=== PATIENT | female | born 1975 | race Caucasian/White ===

== ENCOUNTER 2022-12-08 14:41 | Emergency (ER) | payer OTHER, SELFPAY ==
[2022-12-08 14:48] VITALS: BP 146/99; PULSE 91; RESP 14; TEMP 36.7; O2SAT 99
--- NOTE | 2022-12-08 14:48 | ED.GENADULT ---
HPI - General Adult General Stated complaint: Blood Pressure Problem/Chest Pain Time Seen by Provider: 12/08/22 14:56 Mode of arrival: ambulatory Limitations: no limitations History of Present Illness HPI narrative: 47-year-old female presents with concern for chest pain, increased blood pressure, chest heaviness, ?just not feeling right?. She reports she has been having intermittent chest pain for couple of days, she started ?just not feeling right? today. She reports she has been going through a lot of stress. She denies shortness of breath, exacerbating or relieving factors of her chest pain. Reports she has had some nausea today. Otherwise denies sick symptoms. MD complaint: Chest pain Related Data Home Medications Medication Instructions Recorded Confirmed No Home Medications 12/08/22 12/08/22 Allergies Allergy/AdvReac Type Severity Reaction Status Date / Time egg Allergy Mild ABDOMINAL Verified 12/01/15 11:18 PAIN Review of Systems Review of Systems: CONSTITUTIONAL: Denies malaise, chills, sweats, or fever. EYES: Denies visual changes, redness, or discharge. ENT: Denies rhinorrhea, congestion, sinus pain, otalgia or sore throat. CARDIOVASCULAR: Reports chest pain and heaviness. Denies palpitations or edema. RESPIRATORY: Denies cough or dyspnea. GASTROINTESTINAL: Denies abdominal pain, vomiting, diarrhea. Reports nausea SKIN: Denies rash or itching. MUSCULOSKELETAL: Denies back pain, joint pain, or myalgia. NEUROLOGIC: Reports headache. PSYCHIATRIC: Reports anxiety All systems reviewed & are unremarkable except as noted in HPI and below PMFSH Comments At time of signature, agree with nursing past medical, surgical, social and family history. There is no relevant family history pertinent to the presenting complaint Exam Narrative: GENERAL: Well-appearing, well-nourished, and in no acute distress. HEAD: Normocephalic, atraumatic. EYES: PERRLA, sclera clear, and EOMI. ENT: Nares clear, turbinates pink, no rhinorrhea or epistaxis. Mucous membranes moist. NECK: Supple. No lymphadenopathy. Carotids were easily palpable bilaterally. CHEST: No respiratory distress. Clear to auscultation. No bony deformities, no asymmetry. Speaks in full sentences. HEART: Regular rate and rhythm. No murmur heard. Normal peripheral pulses. SKIN: Warm, dry, no visible rash. NEURO: Alert and oriented x3. PSYCH: Normal mood and affect Course Course Emergency Course: Patient is aware of, understands and agrees to be seen in the emergency room. Patient agrees to proceed directly to the emergency department. Portions of this record may have been created with voice recognition software Level of Care: Express Care Visit Vital Signs Vital signs: Reviewed. Transfer Transfered to: [place]) Transportation: Other (Private vehicle driven by sister) Transfer rationale: Chest pain, heaviness Accepting physician: Maxine Robert Medical Decision Making MDM Narrative Medical decision making narrative: Exam findings and imaging show no acute concerns or changes; patient is non-toxic appearing and is in no distress. Patient is appropriate for outpatient treatment and follow-up. ECG Data EKG #1: ECG completion date: 12/08/22 ECG completion time: 15:04 Prior ECG tracings: not available for review Interpretation: Right and left atrial enlargement, rate 91, NC interval 136, QRS duration 88 EKG Interpretation: sinus rhythm and ST depression Critical Care Time Critical Care Time Critical Care Time: No Discharge Plan Discharge Clinical Impression: Chest pain Patient Disposition: Acute Care Hospital Condition: Stable Follow-up/Referrals: PHYSICIAN NOT ON STAFF,NONSTAFF [Primary Care Provider] - Time of Disposition: 15:14
--- NOTE | 2022-12-08 15:04 | ECG_ITS ---
Measurements Intervals [place] Rate: 91 P: 70 MA: 136 QRS: 45 QRSD: 88 T: 50 QT: 339 QTc: 418 Interpretive Statements SINUS RHYTHM POSSIBLE RIGHT ATRIAL ENLARGEMENT POSSIBLE LEFT ATRIAL ENLARGEMENT BASELINE ARTIFACT- I BORDERLINE ECG NO PREVIOUS ECG AVAILABLE FOR COMPARISON Electronically Signed On 12-08-2022 15:15:56 CDT by Natalio Lopez D.O.
== END 2022-12-08 15:15 | disposition short-term general hospital (02) ==
PROVIDERS: Emergency Provider Nurse Practitioner
DX: R07.9 Chest pain, unspecified (principal)
CPT/HCPCS: 93005; 99203; G0463

== ENCOUNTER 2024-10-19 11:46 | Emergency (ER) | payer OTHER, SELFPAY ==
--- NOTE | ~2024-10-19 | XR_ITS ---
[[id number] ] INDICATION: Left rib pain TECHNIQUE: Frontal projection of the upper left ribs, frontal projection of the lower left ribs, obli que projection of all the left ribs, frontal inspiratory chest x-ray for interpretation. FINDINGS: There are no displaced rib fractures identified. There are no soft tissue abnormality see n. The lungs are clear. IMPRESSION: 1:No acute displaced rib fractures. Reviewed, dictated and finalized at location A.
--- OUTSIDE RECORDS SUMMARY | 2024-10-19 11:48 | XMS_ITS | Clinical Summary ---
Author Organization [facility] Address [address], [place] [address] Phone Care Team Providers Care Motion Study Analyst Name Role Phone Antwan Clarke APRN, STRAND AND BINDER CONTROLLER Primary Care Provider + Allergies Active Allergy Reactions Criticality Noted Date Comments Egg-Derived Products Unknown 06/11/2016 Morphine Other (see Comments) 02/28/2019 Passes out but still has pain Medications ibuprofen (MOTRIN) 600 MG Tablet Take 600 mg by mouth every 8 hours as needed. Active Cholecalciferol (VITAMIN D-3 PO) Take by mouth daily. Active Loperamide HCl (IMODIUM A-D PO) Take by mouth as needed. Active famotidine (PEPCID) 20 MG Tablet Take 1 Tab by mouth 2 times daily. 90 Tab 3 02/01/2019 Active hydrOXYzine (ATARAX) 25 MG Tablet Take 1 Tablet by mouth every 6 hours as needed for Anxiety. 90 Tablet 12/08/2022 Active Active Problems Problem Noted Date Diagnosed Date Tremor 06/11/2016 Fibromyalgia 06/11/2016 Chronic daily headache 06/11/2016 Anxiety 06/11/2016 Family History Medical History Relation Name Comments Colon Cancer Father Skin Cancer Maternal Aunt 1 Cancer Maternal Aunt 2 Cancer Mother esophagus Lung Cancer Mother Ovarian Cancer Mother Breast Cancer Paternal Grandmother Relation Name Status Comments Father Maternal Aunt 1 Maternal Aunt 2 blood cancer Mother Esophagus cance r Paternal Grandmother Social History Tobacco Use Types Packs/Day Years Used Date Smoking Tobacco: Every Day Cigarettes 0.5 23 Smokeless Tobacco: Never Tobacco Cessation:Ready to Q uit: No; Counseling Given: Yes Alcohol Use Standard Drinks/Week Comments Yes 5 (1 standard drink = 0.6 oz pur e alcohol) AUDIT-C Answer Date Recorded Frequency of Alcohol Consumption 2-4 times a tue02/01/2019 Average Number of Drinks 3 or 4 019 Frequency of Binge Drinking Not on file 01/13 PHQ-2 Answer Date Recorded PHQ-2 Score 0 02/28/2019 Sexually Active Control Partners Comments Yes Male Comments No Sex and Gender Information Value Date Recorded Sex Assigned at Not on file Legal Sex Female 4:44 PM ROOFING LAYER Gender Identity Not on file Sexual Orientation Not on file 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 Not on file Not on file Not on file Last Filed Vital Signs Vital Sign Reading Time Taken Comments Blood Pressure 142/93 12/08/2022 5:37 PM CDT Pulse 72 12/08/2022 5:37 PM CDT Temperature 36.3 C (97.4 F) 12/08/2022 5:37 PM CDT Respiratory Rate 17 12/08/2022 5:37 PM CDT Oxygen Saturation 99% 12/08/2022 5:37 PM CDT Inhaled Oxygen Concentration - - Weight 62.1 kg (137 lb) 12/08/2022 3:36 PM CDT Height 160 cm (5' 3) 12/08/2022 3:36 PM CDT Body Mass Index 24.27 12/08/2022 3:36 PM CDT Plan of Treatment Health Maintenance Due Date Last Done Comments Hepatitis C Virus (HCV) Screening 1977 TdaP Immunization 1977 Hepatitis B Immunization (1 of 3 - 19+ 3-dose series) 1996 Pneumococcal Immunization Combined (1 of 2 - PCV) 1996 Pap Smear 1998 Cervical Cancer Screening (CCS) 2007 HPV/Cotest 2007 Cologuard 2022 Immunochemical Fecal Occult Blood 2022 Mammogram 06/22/2023 06/21/2022 SARS-COV-2 Immunization ( season) 2023 10/02/2020 Influenza Immunization (#1) 2024 Colonoscopy 02/01/2026 02/01/2023, 02/28/2019 Colorectal Cancer Screening 02/01/2026 Respiratory Syncytial Virus (RSV) Immunization (Adult) (1 - 1-dose 75+ series) 2052 Discussion re Starting/Frequency of Mammograms Completed 06/21/2022 Human Papillomavirus (HPV) Immunization Aged Out No longer eligible b ased on patient's age to complete this topic Meningococcal Immunization (ACWY) Aged Out No longer eligible b ased on patient's age to complete this topic Rotavirus Immunization Aged Out No lo nger eligible based on patient's age to complete this topic [place] [address] [facility] Care Teams Motion Study Analyst Relationship Specialty Start Date End Date Antwan Clarke, [place], [place] [address] [place] [address] PCP - General Internal Medicine 04/20/16
--- OUTSIDE RECORDS SUMMARY | 2024-10-19 11:48 | XMS_ITS | Clinical Summary ---
Author Organization [facility] [address] [facility] Address [address] [place] [address] Care Team Providers Care Paste Mixer Name Role Phone Cortez Bowden MD Primary Care Provider [phone] Allergies Active Allergy Reactions Criticality Noted Date Comments Egg Morphine Medications loratadine-pseu doephedrine (CLARITIN-D 24-hour) 10-240 mg per 24 hr tablet Take 1 tablet by mouth daily as needed for allergies Active iron 18 mg tablet Take 1 tablet by mouth every morning Active multivitamin capsule Take 1 capsule by mouth daily Active aspirin 81 mg enteric coated tablet Take 1 tablet (81 mg total) by mouth daily Active omeprazole (PriLOSEC) 40 mg capsule Take 1 capsule (40 mg total) by mouth daily 30 capsule 2 4 Active traZODone (DESYREL) 50 mg tablet Take 1 tablet (50 mg total) by mouth nightly Active nicotine (NICODERM CQ) [address] 1 patch on the skin daily 30 patch 5 Active LORazepam (ATIVAN) 0.5 mg tabletIndicatio ns:Alcohol Withdrawal Syndrome Take 2 tablets (1 mg total) by mouth every 8 (eight) hours as needed (withdrawal symptoms) for 1 day, THEN 2 tablets (1 mg total) 2 (two) times a day as needed (withdrawal symptoms) for 1 day, THEN 2 tablets (1 mg total) nightly as needed (withdrawal symptoms) for up to 1 day. 6 tablet 5 Active Active Problems Problem Noted Date Diagnosed Date Alcohol withdrawal syndrome without complication 04/20/2024 Arthritis 04/20/2024 Asthma 04/20/2024 Hx of colonic polyps 01/21/2023 Blood in stool 01/21/2023 Gastroesophageal reflux disease 01/21/2023 Irritable bowel syndrome with diarrhea 9 Mixed anxiety and depressive disorder 12/05/2018 Anxiety 06/11/2016 Fibromyalgia 06/11/2016 Tremor 06/11/2016 Surgical History Surgery Date Site/Laterality Comments COLONOSCOPY 03/14/2018 - 03/13/2019 POLYPECTOMY UPPER GASTROINTESTINAL ENDOSCOPY Medical History Medical History Date Comments Colon polyp Fibromyalgia Anxiety Migraine Pre-diabetes Menopause Family History Medical History Relation Name Comments Colon cancer Father Breast cancer Father's Sister Ovarian cancer Mother Breast cancer Paternal Grandmother Thyroid cancer Neg Hx Relation Name Status Comments Father Father's Sister Mother Paternal Grandmother Social History Tobacco Use Types Packs/Day Years Used Date Smoking Tobacco: Every Day Cigarettes Tobacco Cessation:Ready to Q uit: Not Asked; Counseling Given: Not Answered AUDIT-C Answer Date Recorded Q1: How often do you have a drink containing alc ohol? 2-3 times a week 09/02/2023 Q2: How many drinks containi ng alcohol do you have on a typical day when you are drinking? 3 or 4 09/02/2023 Q3: How often do you have si x or more drinks on one occasion? Never 09/02/2023 Personal Safety Answer Date Recorded Have you ever been in or are you currently in a harmful physical or emotional relationship or is someone making you feel afraid or unsafe? Denies 04/19/2024 Comments Unknown Sex and Gender Information Value Date Recorded Sex Assigned at Not on file Legal Sex Female 9:10 AM RECREATION CLERK Gender Identity Not on file Sexual Orientation Not on file Obstetrics History Para Term AB IAB SAB Ectopic Multiple Livin g Live Births 3 2 2 Date Outcome GA Total Labor Labor/2nd/3rd Weight Sex Type Anes PTL Monica A1 A5 Name Clin Term Term Last Filed Vital Signs Vital Sign Reading Time Taken Comments Blood Pressure 114/78 04/22/2024 7:34 AM RECREATION CLERK Pulse 84 04/22/2024 7:34 AM RECREATION CLERK Temperature 36.5 C (97.7 F) 04/22/2024 7:34 AM RECREATION CLERK Respiratory Rate 18 04/22/2024 7:34 AM RECREATION CLERK Oxygen Saturation 96% 04/22/2024 7:34 AM RECREATION CLERK Inhaled Oxygen Concentration - - Weight 61.2 kg (134 lb 14.7 oz) 04/21/2024 7:30 PM RECREATION CLERK Height 160 cm (5' 2.99) 04/21/2024 7:30 PM RECREATION CLERK Body Mass Index 23.91 04/21/2024 7:30 PM RECREATION CLERK Plan of Treatment Health Maintenance Due Date Last Done Comments Cervical Cancer Screening 1977 Depression Screening 1977 DTaP/Tdap/Td Vaccine (1 - Tdap) 1988 Hepatitis B Screening 1995 Regular Well Visit/Exam 18-64 1995 Pneumococcal vaccine <65 (1 of 2 - PCV) 1996 Breast Cancer Screening-Mammogram 06/22/2023 023, 11/27/2018 Covid-19 Vaccine (2 - season) 2023 Influenza Vaccine (#1) 2024 Colon Cancer Screening-Colonoscopy 02/01/20332022, 01/18/2011 Hepatitis C Screening Completed 04/20/2024 Procedures Procedure Name Priority Date/Time Associated Diagnosis Comments HEPATITIS C ANTIBODY Routine 04/20/2024 3:46 PM RECREATION CLERK COLONOSCOPY 02/01/2023 12:41 PM RECREATION CLERK SCREENING MAMMOGRAM BILATERAL W [facility] Schedule Routine, Read Routine (OP Routine) 06/21/2022 12:07 PM CDT Encounter for screening mammogram for malignant neoplasm of breast from Last 3 Months or Most Recently Relevant to Health Maintenance Results * Hepatitis C antibody Blood (04/20/2024 3:46 PM RECREATION CLERK) Hep C Ab Nonreactive Nonreactive Comment: Antibodies to HCV not detected. Does NOT exclude the possibility of recent exposure to HCV. Current interpretive data was last revised on 21 Interpretive Data Nonreactive: Antibodies to HCV not detected. Does NOT exclude the possibility of recent exposure to HCV. Equivocal: Equivocal for HCV antibodies. Supplemental molecular testing will be automatically performed to determine infection status in accordance with current CDC screening recommendations. Reactive: Positive for HCV antibodies. This may represent current or past HCV infection. Supplemental molecular testing will be automatically performed to determine current infection status in accordance with current CDC screening recommendations. Interpretive data was last revised on 2019. Blood 04/20/2024 3:46 PM RECREATION CLERK 04/20/2024 3:50 PM RECREATION CLERK Janet Huizar NP LAB MICROBIOLOGY - GENERAL ORDERABLES Final Result Performing Organization Address City/State/[facility] [place] Phone Number PAO [address] [facility] Department [place] [address] * COLONOSCOPY (02/01/2023 12:41 PM RECREATION CLERK) Anatomical Region Laterality Modality Other Narrative Procedure Note Cara Cruz MD - 02/01/2023 12:41 PM CST [facility] Patient Name: Monisha Guerra Procedure Date: 02/01/2023 12:41PM Date of : 1975 Admit Type: Outpatient Age: 47 Gender: Female Attending MD: Cara Cruz M.D. Room: [facility] 1 Note Status: Finalized Patient Profile: This is a 47 year old female. History of polyps.Noted episodes of bright red bleeding per rectum Procedure: Colonoscopy Indications: High risk colon cancer surveillance: Personalhistory of colonic polyps, Last colonoscopy: 2018 Referring MD: Cortez Bowden M.D. Providers: Cara Cruz M.D. Impression: - Two 2 to 3 mm polyps in the ascending colon and cecum, removed with a cold biopsy forceps. Resected and retrieved. - Mild diverticulosis in the sigmoid colon and inthe descending colon. - One 4 mm polyp in the distal sigmoid colon,removed with a cold biopsy forceps. Resected andretrieved. - Internal and external hemorrhoids. Recommendation: - Await pathology results. - Repeat colonoscopy in 5 years for surveillance. - Continue present medications. - If bleeding per rectum episodes are persistentthen consider banding of internal hemorrhoids Medicines: Monitored Anesthesia Care Complications: No immediate complications. Estimated Blood Loss: Estimated blood loss: none. Procedure: Pre-Anesthesia Assessment: - Prior to the procedure, a History and Physicalwas performed, and patient medications and allergieswere reviewed. The patient's tolerance of previous anesthesia was also reviewed. The risks andbenefits of the procedure and the sedation options and risks were discussed with the patient. All questions were answered, and informed consent was obtained. Prior Anticoagulants: The patient has taken noanticoagulant or antiplatelet agents. ASA Grade Assessment: Per anesthesia note and evaluation. After reviewing the risks and benefits, the patient was deemed in satisfactory condition to undergo the procedure. - Prior to the procedure, a History and Physicalwas performed, and patient medications and allergieswere reviewed. The patient's tolerance of previous anesthesia was also reviewed. The risks andbenefits of the procedure and the sedation options and risks were discussed with the patient. All questions were answered, and informed consent was obtained. Prior Anticoagulants: The patient has taken noanticoagulant or antiplatelet agents. ASA Grade Assessment: Per anesthesia note and evaluation. After reviewing the risks and benefits, the patient was deemed in satisfactory condition to undergo the procedure. The benefits, risks and alternatives of theprocedure and sedation were discussed and informed consentwas obtained. All questions were answered. Please referto the signed informed consent document in the medical record. The bowel preparation used was Miralax and bisacodyl tablets via split dose instruction. The scope was passed under direct vision. The Pediatric Colonoscope [id number]-[id number] was introducedthrough the anus and advanced to the the cecum, identifiedby appendiceal orifice and ileocecal valve. Thequality of the bowel preparation was excellent. Bowel prepwas administered using a split dose. Findings: Hemorrhoids were found on perianal exam. The cecum appeared normal. Two semi-sessile polyps were found in the ascending colon and cecum.The polyps were 2 to 3 mm in size. These polyps were removed with a cold biopsy forceps. Resection and retrieval were complete. A few small-mouthed diverticula were found in the sigmoid colon and descending colon. The entire colonic mucosa appeared normal. A 4 mm polyp was found in the distal sigmoid colon. The polyp was semi-sessile. The polyp was removed with a cold biopsy forceps. Resection and retrieval were complete. Internal hemorrhoids were found during retroflexion. The hemorrhoids were medium-sized. Electronically signed by Cara Cruz M.D. Cara Cruz M.D. 02/01/2023 3:51:44 PM Number of Addenda: 0 Note Initiated On: 02/01/2023 12:41 PM Procedure Code(s): --- Professional --- 39930, Colonoscopy, flexible; with biopsy, single or multiple Diagnosis Code(s): --- Professional --- Z86.010, Personal history of colonic polyps K64.8, Other hemorrhoids D12.2, Benign neoplasm of ascending colon D12.5, Benign neoplasm of sigmoid colon K57.30, Diverticulosis of large intestine without perforation orabscess without bleeding CPT copyright 2020 [employer]. All rights reserved. The codes documented in this report are preliminary and upon plaque maker reviewmay be revised to meet current compliance requirements. Recognized by the [employer] for promoting quality in endoscopy us Cara Cruz MD ENDOSCOPY PROCEDURES Final Result * Screening Mammogram Bilateral [place] (06/21/2022 12:07 PM CDT) Anatomical Region Laterality Modality Breast Bilateral Mammography 06/23/2022 2:13 PM CDT Impressions 06/23/2022 2:13 PM CDT There is no mammographic evidence of malignancy. A 1 year screening mammogram is recommended. BI-RADS: 1 - Negative. The patient has been or will be contacted. The patient will be entered into a reminder system with a target due date of 1 year for her next mammogram. Electronically signed by: Lino Gar M.D. Narrative 06/23/2022 2:13 PM CDT EXAMINATION: SCREENING MAMMOGRAM BILATERAL [place] ORDERING HEALTHCARE PROVIDER: NICKI KOO HISTORY: Routine screening mammography. COMPARISON: 11/24/2018, 11/11/2015 TECHNIQUE: CC and MLO views of the bilateral breasts were obtained with digital technique using breast tomosynthesis with C view. Computer aided detection was utilized. FINDINGS: DENSITY: The tissue of the bilateral breasts is heterogeneously dense, which may obscure small masses. BREASTS: There are no suspicious masses, suspicious calcifications, or other suspicious findings in either breast. There has been no suspicious interval change. Nicki Koo HR RECRUITER IMG MAMMO PROCEDURES Final Re sult from Last 3 Months or Most Recently Relevant to Health Maintenance [place] [address] [employer] [facility] [place] [address] Advance Directives For more information, please contact: [phone] * Full Code (Latest Code Status on File) Date Activated Date Inactivated Comments 04/20/2024 3:33 PM 04/22/2024 5:51 PM * Full Code Date Activated Date Inactivated Comments 02/01/2023 12:33 PM 02/01/2023 8:01 PM Care Teams Paste Mixer Relationship Specialty Start Date End Date Cortez Bowden MD [address] [place] [address] DR VEGAS [facility] [place] [address] PCP - General Family Medicine 02/01/23
[2024-10-19 11:50] VITALS: BP 155/107; PULSE 92; RESP 16; TEMP 36.6; O2SAT 98
[2024-10-19 11:55] VITALS: BP 140/101
--- NOTE | 2024-10-19 12:02 | ED_ITS ---
HPI - General Adult General Chief complaint: Unspecified Stated complaint: Rib Injury Time Seen by Provider: 10/19/24 12:02 Source: patient Mode of arrival: ambulatory Limitations: no limitations History of Present Illness HPI narrative: 49 yo F presents with pain to L ribs, anterior aspect. Pt playful wrestling with and he slipped and fell on her. Pain with movement and deep breath. ambulatory with normal gait. No resp distress. all systems reviewed and negative except as noted above. Related Data Home Medications ?Medication ?Instructions ?Recorded ?Confirmed ?Last Taken ?Type allergy pill 10/19/24 Unknown History omeprazole 40 mg capsule,delayed mg 10/19/24 Unknown History release trazodone 100 mg tablet mg 10/19/24 Unknown History Allergies Allergy/AdvReac Type Severity Reaction Status Date / Time egg Allergy Mild ABDOMINAL Verified 10/19/24 11:48 PAIN PMFSH Comments At time of signature, agree with nursing past medical, surgical, social and family history. There is no relevant family history pertinent to the presenting complaint. Exam Narrative: GENERAL: This is a well-nourished, well-developed patient, in no apparent distress. HEAD: normocephalic, atraumatic. EYES: PERRL. Sclera clear/white. Vision is grossly intact. EARS: External ears normal NOSE: External nose normal NECK: Neck supple, non-tender without lymphadenopathy, masses or thyromegaly. CARDIOVASCULAR: Regular rate and rhythm without murmurs, gallops, or rubs. RESPIRATORY: Clear to auscultation. Breath sounds equal bilaterally. No wheezes, rales, or rhonchi. MUSCULOSKELETAL: tender to anterior aspect L ribs just below L breast. no bruising, swelling or deformity noted. SKIN: warm, Dry, intact with no suspicious lesions or rash, good texture and turgor. NEURO: awake, alert, and oriented to person, place and time. There were no obvious focal neurologic abnormalities. EXTREMITIES: No joint tenderness, effusion, or edema noted. Course Course Level of Care: Express Care Visit Vital Signs Vital signs: Vital Signs Temperature 36.6 C 10/19/24 11:50 Pulse Rate 92 10/19/24 11:50 Respiratory Rate 16 10/19/24 11:50 Blood Pressure 155/107 H 10/19/24 11:50 Pulse Oximetry 98 10/19/24 11:50 Oxygen Delivery Room Air 10/19/24 11:50 Temperature 36.6 C 10/19/24 11:50 Pulse Rate 92 10/19/24 11:50 Respiratory Rate 16 10/19/24 11:50 Blood Pressure 140/101 H 10/19/24 11:55 Pulse Oximetry 98 10/19/24 11:50 Oxygen Delivery Room Air 10/19/24 11:50 reviewed Medical Decision Making MDM Narrative Medical decision making narrative: xray of L ribs neg for fracture. discussed results with pt. recommend OTC pain meds, rest, ice. Will see PCP as needed. Well appearing, no distress. Vital Signs Vital Signs: Vital Signs Temperature 36.6 C 10/19/24 11:50 Pulse Rate 92 10/19/24 11:50 Respiratory Rate 16 10/19/24 11:50 Blood Pressure 155/107 H 10/19/24 11:50 Pulse Oximetry 98 10/19/24 11:50 Oxygen Delivery Room Air 10/19/24 11:50 Temperature 36.6 C 10/19/24 11:50 Pulse Rate 92 10/19/24 11:50 Respiratory Rate 16 10/19/24 11:50 Blood Pressure 140/101 H 10/19/24 11:55 Pulse Oximetry 98 10/19/24 11:50 Oxygen Delivery Room Air 10/19/24 11:50 Imaging Data My impression: Agree with radiologist Radiologist's impression: [[id number] ] INDICATION: Left rib pain TECHNIQUE: Frontal projection of the upper left ribs, frontal projection of the lower left ribs, oblique projection of all the left ribs, frontal inspiratory chest x-ray for interpretation. FINDINGS: There are no displaced rib fractures identified. There are no soft tissue abnormality seen. The lungs are clear. IMPRESSION: 1:No acute displaced rib fractures. Discharge Plan Discharge Clinical Impression: Contusion of rib on left side Patient Disposition: Home Condition: Stable Instructions: Rib Contusion (ED) Additional Instructions: the x-ray of your left ribs is negative for fracture. Take Tylenol or ibuprofen every 6-8 hours as needed for pain. Apply ice as needed for pain. Avoid activities that increase pain. See your doctor if pain is not improving. Patient Language: Slovenian Prescriptions: No Action trazodone 100 mg tablet omeprazole 40 mg capsule,delayed release(DR/EC) allergy pill Follow-up/Referrals: UNKNOWN,DOCTOR [Primary Care Provider] - Time of Disposition: 12:26
== END 2024-10-19 12:26 | disposition home or self-care (01) ==
PROVIDERS: Emergency Provider Nurse Practitioner Family
DX: S20.212A Contusion of left front wall of thorax, initial encounter (principal); W01.0XXA Fall on same level from slipping, tripping and stumbling without subsequent striking against object, initial encounter; K21.9 Gastro-esophageal reflux disease without esophagitis; M79.7 Fibromyalgia
CPT/HCPCS: 71101; 99213; G0463